=== PATIENT | female | born 1985 | race American Indian/Alaskan Native ===

== ENCOUNTER 2021-05-16 06:12 | Emergency (ER) | payer OTHER ==
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
[2021-05-16 08:18] VITALS: BP 106/77
== END 2021-05-16 08:21 | disposition home or self-care (01) ==
LOC: ED 06:12
DX: S09.90XA Unspecified injury of head, initial encounter (principal); V87.7XXA Person injured in collision between other specified motor vehicles (traffic), initial encounter; Y93.89 Activity, other specified; Y92.488 Other paved roadways as the place of occurrence of the external cause; Y99.8 Other external cause status
CPT/HCPCS: 70450; 99284

== ENCOUNTER 2021-08-06 22:19 | Emergency (ER) | payer SELFPAY ==
[2021-08-06 23:23] VITALS: BP 123/81
[2021-08-07] MEDS ORDERED: LIDOCAINE-MPF (1%) 10 MG/1 ML VIAL 5 ML INFILTRATI ONE (00:01)
--- NOTE | 2021-08-07 02:19 | Emergency Department Report ---
- General Chief Complaint: Wound/Laceration Stated Complaint: FINGER LACERATION Source: patient Mode of arrival: Ambulatory Limitations: No Limitations - History of Present Illness Initial Comments: Patient is a 36-year-old -[place] female with no past medical history who presents to the ED with complaint of acute onset persistent left middle finger pain for laceration wound for the last 2 hours after she scraped her left middle finger against a piece of glass that got stuck on her left plantar foot on a boot. Patient states that she is up-to-date with all her tetanus vaccinations. Patient denies numbness and tingling or weakness of left middle finger, nausea and vomiting, syncope, fall or headache. -: Sudden, hour(s) (2) Location: other (Distal left middle finger) Extremity Location: Left: Hand (Distal left middle finger laceration) Place: home Context: accidental, sharp object use Associated Symptoms: pain, other (Bleeding laceration). denies: loss of feeling/numbness, suspect foreign body present, unable to move injured part, w eakness followed by dizziness, nausea/vomiting, fever - Related Data Previous Rx's Medication Instructions Recorded Last Taken Type Ibuprofen [Motrin] 800 mg PO Q8HR PRN #30 tablet 08/07/21 Unknown Rx cephALEXin [Keflex] 500 mg PO Q8HR #30 cap 08/07/21 Unknown Rx Allergies Allergy/AdvReac Type Severity Reaction Status Date / Time No Known Allergies Allergy Verified 05/16/21 06:18 ED Review of Systems ROS: Stated complaint: FINGER LACERATION Other details as noted in HPI Constitutional: denies: chills, fever Eyes: denies: eye pain, eye discharge, vision change ENT: denies: ear pain, throat pain Respiratory: denies: cough, shortness of breath, wheezing Cardiovascular: denies: chest pain, palpitations Endocrine: no symptoms reported Gastrointestinal: denies: abdominal pain, nausea, diarrhea Genitourinary: denies: urgency, dysuria, discharge Musculoskeletal: arthralgia (Bleeding distal left middle finger laceration wound with pain). denies: back pain, joint swelling Skin: other (Bleeding distal left middle finger laceration wound with pain). denies: rash, lesions Neurological: denies: headache, weakness, paresthesias Psychiatric: denies: anxiety, depression Hematological/Lymphatic: denies: easy bleeding, easy bruising ED Past Medical Hx - Past Medical History Previous Medical History?: Yes Hx Asthma: Yes - Surgical History Past Surgical History?: No - Social History Smoking Status: Current Every Day Smoker Substance Use Type: None - Medications Home Medications: Home Medications Medication Instructions Recorded Confirmed Last Taken Type Ibuprofen [Motrin] 800 mg PO Q8HR PRN #30 tablet 08/07/21 Unknown Rx cephALEXin [Keflex] 500 mg PO Q8HR #30 cap 08/07/21 Unknown Rx ED Physical Exam - General Limitations: No Limitations General appearance: alert, in no apparent distress - Head Head exam: Present: atraumatic, normocephalic, normal inspection - Eye Eye exam: Present: normal appearance, PERRL, EOMI Pupils: Present: normal accommodation - ENT ENT exam: Present: normal exam, normal orophraynx, mucous membranes moist, TM's normal bilaterally, normal external ear exam - Neck Neck exam: Present: normal inspection, full ROM - Respiratory Respiratory exam: Present: normal lung sounds bilaterally. Absent: respiratory distress, wheezes, rales, rhonchi, chest wall tenderness, accessory muscle use, decreased breath sounds, prolonged expiratory, other - Cardiovascular Cardiovascular Exam: Present: regular rate, normal rhythm, normal heart sounds. Absent: systolic murmur, diastolic murmur, rubs, gallop - GI/Abdominal GI/Abdominal exam: Present: soft, normal bowel sounds. Absent: tenderness, guarding, rebound, hyperactive bowel sounds, hypoactive bowel sounds, organomeg juliane - Extremities Exam Extremities exam: Present: normal inspection, full ROM, tenderness (Palpable distal left middle finger tenderness due to a 2 cm laceration wound), normal capillary refill. Absent: pedal edema, joint swelling, calf tenderness - Back Exam Back exam: Present: normal inspection, full ROM. Absent: tenderness, muscle spasm, paraspinal tenderness, vertebral tenderness - Neurological Exam Neurological exam: Present: alert, oriented X3, CN II-XII intact, normal gait, reflexes normal - Psychiatric Psychiatric exam: Present: normal affect, normal mood - Skin Skin exam: Present: warm, dry, intact, normal color, other (Bleeding 2 cm laceration wound on distal left middle finger with localized tenderness). Absent: rash ED Course Vital Signs 08/06/21 23:16 Temperature 97.9 F Pulse Rate 80 Respiratory 16 Rate Blood Pressure 123/81 O2 Sat by Pulse 99 Oximetry - Laceration /Wound Repair Left Distal Finger Wound Location: upper extremity (Distal left middle finger laceration) Wound Length (cm): 2 Wound's Depth, Shape: superficial, linear Wound Explored: contaminated Irrigated w/ Saline (ccs): 200 Betadine Prep?: Yes Anesthesia: 1% Lidocaine Volume Anesthetic (ccs): 4 Wound Debrided: extensive Wound Repaired With: sutures Suture Size/Type: 4:0, proline Number of Sutures: 6 Layer Closure?: No Sterile Dressing Applied?: No Progress: The wound was cleaned extensively with normal saline solution, lidocaine 1% solution was infiltrated in the left middle finger for digital block. When anesthesia was fully achieved the wound was sutured per protocol and the patient tolerated procedure well. Patient's wound was then dressed appropriately and the patient will discharge home on pain medication and oral antibiotics. Patient was advised return to the ED in 12 to 14 days for suture removal or return to the ED immediately if symptoms get worse. ED Medical Decision Making - Medical Decision Making This is a 36-year-old -[place] female with no past medical history who presents to the ED with complaint of acute onset persistent left middle finger pain for laceration wound for the last 2 hours after she scraped her left middle finger against a piece of glass that got stuck on her left plantar foot on a boot. Patient states that she is up-to-date with all her tetanus vaccinations. The wound was cleaned extensively with normal saline solution, lidocaine 1% solution was infiltrated in the left middle finger for digital block. When anesthesia was fully achieved the wound was sutured per protocol and the patient tolerated procedure well. Patient's wound was then dressed appropriately and the patient will discharge home on pain medication and oral antibiotics. Patient was advised return to the ED in 12 to 14 days for suture removal or return to the ED immediately if symptoms get worse. - Differential Diagnosis Puncture wound; laceration; finger abrasion; finger contusion Critical care attestation.: If time is entered above; I have spent that time in minutes in the direct care of this critically ill patient, excluding procedure time. ED Disposition Clinical Impression: Laceration of left middle finger w/o foreign body w/o damage to nail Qualifiers: Encounter type: initial encounter Qualified Code(s): S61.213A - Laceration without foreign body of left middle finger without damage to nail, initial encounter Disposition: 01 HOME / SELF CARE / HOMELESS Is pt being admited?: No Does the pt Need Aspirin: No Condition: Stable Instructions: Sutured Wound Care, [id number], Laceration Care, Adult, [id number] Additional Instructions: Take medication with food, drink plenty of fluids and follow-up with your primary care physician in 7 to 10 days for reevaluation. Return to the ED immediately if symptoms get worse. Otherwise return to the ED in 12 to 14 days for suture removal. Prescriptions: cephALEXin [Keflex] 500 mg PO Q8HR #30 cap Ibuprofen [Motrin] 800 mg PO Q8HR PRN #30 tablet PRN Reason: Pain , Severe (7-10) Referrals: [facility] [Provider Group] - 7-10 days Time of Disposition: 02:23 Print Language: KAZAKH
== END 2021-08-07 02:43 | disposition home or self-care (01) ==
LOC: ED 22:19
DX: S61.213A Laceration without foreign body of left middle finger without damage to nail, initial encounter (principal); W25.XXXA Contact with sharp glass, initial encounter; Y93.89 Activity, other specified; Y92.89 Other specified places as the place of occurrence of the external cause; Y99.8 Other external cause status
CPT/HCPCS: 12001; 99282; J3490

== ENCOUNTER 2021-08-16 11:03 | Emergency (ER) | payer SELFPAY ==
[2021-08-16 11:56] VITALS: BP 123/78
--- NOTE | 2021-08-16 12:03 | Emergency Department Report ---
Suture/Staple Removal - HPI Stated Complaint: take out sutures Time Seen by Provider: 08/16/21 11:51 When Sutures or Zayra Placed: 8-10 Days Ago Wound Location: Left middle finger ED Review of Systems ROS: Stated complaint: take out sutures Other details as noted in HPI Comment: All other systems reviewed and negative ED Past Medical Hx - Past Medical History Hx Asthma: Yes - Social History Smoking Status: Current Every Day Smoker Substance Use Type: None - Medications Home Medications: Home Medications Medication Instructions Recorded Confirmed Last Taken Type Ibuprofen [Motrin] 800 mg PO Q8HR PRN #30 tablet 08/07/21 Unknown Rx cephALEXin [Keflex] 500 mg PO Q8HR #30 cap 08/07/21 Unknown Rx Suture Removal Exam - Exam General: Vital signs noted. No distress. Alert and acting appropriately. Wound: No Pathologic Erythema, No Tenderness, No Drainage, No Pus, No Wound Dehiscence Other Systems: All other systems reviewed and are unremarkable. ED Recheck MDM - Differential Diagnosis Suture/Staple Removal Critical care attestation.: If time is entered above; I have spent that time in minutes in the direct care of this critically ill patient, excluding procedure time. ED Disposition Clinical Impression: Encounter for removal of sutures Disposition: 01 HOME / SELF CARE / HOMELESS Is pt being admited?: No Does the pt Need Aspirin: No Condition: Stable Instructions: Wound Closure Removal, Care After Additional Instructions: Keep wound clean and dry. Time of Disposition: 11:52
== END 2021-08-16 12:07 | disposition home or self-care (01) ==
LOC: ED 11:03
DX: Z48.02 Encounter for removal of sutures (principal); J45.909 Unspecified asthma, uncomplicated; F17.200 Nicotine dependence, unspecified, uncomplicated

== ENCOUNTER 2022-03-07 22:46 | Emergency (ER) | payer SELFPAY ==
--- NOTE | 2022-03-08 00:36 | XRay Report ---
Left ankle, 2 views HISTORY: Pain COMPARISON: None FINDINGS: No acute fracture. There is remote fracture of the distal fibula with mild residual deformi ty. Mild osteoarthritis of the ankle. No pleural effusion. No focal soft tissue abnormality. Signer Name: Gerald Toure MD Signed: 03/08/2022 12:31 AM Workstation Name: [id number]
[2022-03-08] MEDS ORDERED: HYDROcodone/ACETAMINOPHEN 5-325 MG TAB PO STA (02:24)
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
[2022-03-08 03:54] VITALS: BP 136/72
== END 2022-03-08 03:54 | disposition home or self-care (01) ==
LOC: ED 22:46
DX: S01.81XA Laceration without foreign body of other part of head, initial encounter (principal); J45.909 Unspecified asthma, uncomplicated; F17.200 Nicotine dependence, unspecified, uncomplicated; Z79.899 Other long term (current) drug therapy; Y08.89XA Assault by other specified means, initial encounter; Y93.89 Activity, other specified; Y92.89 Other specified places as the place of occurrence of the external cause; Y99.8 Other external cause status
CPT/HCPCS: 99283